=== PATIENT | female | born 1995 | race African-American/Black ===

== ENCOUNTER 2019-03-10 02:25 | Emergency (ER) | payer OTHER ==
[~2019-03-10] VITALS: Ht 157.5 cm; Wt 59.0 kg
[2019-03-10 02:27] VITALS: BP 126/73
--- NOTE | 2019-03-10 02:28 | NUR ---
BIBA TO ER BED 8
[2019-03-10] MEDS ORDERED: NACL 0.9% 1,000 ML IV ONE (02:40)
[2019-03-10] MEDS ORDERED: MECLIZINE 25 MG TAB PO ONE ×2 (02:40→04:00)
[2019-03-10] MEDS ORDERED: ONDANSETRON 4 MG/2 ML VIAL IVP ONE (02:40)
--- NOTE | 2019-03-10 02:40 | NUR ---
PT BIB AMBULANCE C/O OF DIZZINESS, N/V AND HEADACHE. PT STATED SHE VOMITED X1 AROUND 0100. PAIN LEVEL 5/10, HEADACHE AND LOWER ABDOMINAL PAIN. BOWEL SOUNDS ACTIVE X4 QUADRANTS, NONTENDER TO TOUCH. ERMD AT BEDSIDE. SAFETY MEASURES IN PLACE. WILL CONTINUE TO MONITOR.
--- NOTE | 2019-03-10 02:55 | NUR ---
EKG PERFORMED AT BEDSIDE WITH RN AND FAMILY MEMBER PRESENT
[2019-03-10 02:59] LABS: BASOPHILS % (AUTO) 0.4 % (0.0-2.0); EOSINOPHILS % (AUTO) 0.5 % (0.0-4.0); HEMATOCRIT 38.1 % (36-48); HEMOGLOBIN 12.4 g/dL (12.0-16.0); LYMPHOCYTES # (AUTO) 2.3 K/uL (2.5-16.5); LYMPHOCYTES % (AUTO) 27.4 % (20.5-51.1); MEAN CORPUSCULAR HEMOGLOBIN 27 pg (27-31); MEAN CORPUSCULAR HGB CONC 33 g/dL (33-37); MEAN CORPUSCULAR VOLUME 83.7 fL (80-94); MONOCYTES # (AUTO) 0.5 K/uL (0.8-1.0); MONOCYTES % (AUTO) 6.1 % (1.7-9.3); NEUTROPHILS # (AUTO) 5.4 K/uL (1.8-7.7); NEUTROPHILS % (AUTO) 65.6 % (42.2-75.2); PLATELET COUNT (AUTO) 246 K/uL (140-450); RED BLOOD CELL COUNT(AUTO) 4.55 MIL/uL (4.20-5.40); RED CELL DISTRIBUTION WIDTH 13.4 % (11.6-13.7); WHITE BLOOD COUNT (AUTO) 8.2 K/uL (4.8-10.8)
[2019-03-10 03:08] LABS: ANION GAP 15.7 (8-16); CARBON DIOXIDE 22.8 mmol/L (21-32); CREATININE 0.9 mg/dL (0.6-1.3); POTASSIUM 3.5 mmol/L (3.5-5.1)
[2019-03-10 03:15] LABS: TOTAL BILIRUBIN 0.3 mg/dL (0.0-1.0)
[2019-03-10] MEDS ORDERED: KETOROLAC 15 MG/ML VIAL IVP ONE (03:30)
--- NOTE | 2019-03-10 03:35 | NUR ---
PT STILL C/O OF GUERRERO/DIZZINESS. ERMD MADE AWARE. WILL CONTINUE TO MONITOR.
--- NOTE | 2019-03-10 03:50 | NUR ---
PT AMBULATED TO RESTROOM
[2019-03-10] MEDS ORDERED: METOCLOPRAMIDE 10 MG/2 ML INJ VIAL IVP ONE (04:00)
--- NOTE | 2019-03-10 04:15 | NUR ---
PT STATED "I FEEL BETTER." PAIN LEVEL 0/10. VSS.
[2019-03-10 04:37] VITALS: BP 105/74
--- NOTE | 2019-03-10 04:42 | NUR ---
Patient discharged with v/s stable. Written and verbal after care instructions given and explained. Patient alert, oriented and verbalized understanding of instructions. Ambulatory with steady gait. All questions addressed prior to discharge. ID band removed. Patient advised to follow up with PMD. Rx of ZOFRAN, MECLIZINE, IBUPROFEN WAS given. Patient educated on indication of medication including possible reaction and side effects. Opportunity to ask questions provided and answered.
== END 2019-03-10 04:37 | disposition home or self-care (01) ==
LOC: MED 02:25
DX: R42 Dizziness and giddiness (principal); R51 Headache; R11.2 Nausea with vomiting, unspecified
CPT/HCPCS: 36415; 80053; 81002; 81025; 85025; 96361; 96374; 96375; 99283; J1885; J2405; J2765; J7030; J8597; 93005